=== PATIENT | male | born 1960 | race Caucasian/White ===

== ENCOUNTER 2017-11-04 07:54 | Outpatient (CLI) | payer BC ==
--- NOTE | 2017-11-04 09:53 | RAD ---
LUMBAR SPINE THREE VIEWS: 11/04/2017 HISTORY: Low back pain. FINDINGS: There are five eyf-[id number]-[id number] lumbar type vertebral bodies. The lateral view is slightly rotated, b ut there is no fracture or subluxation seen. Vertebral body heights are within normal limits. Mild vascular calcifications are seen in the lower abdominal aorta. IMPRESSION: No acute osseous abnormality involving the lumbar spine. If the patient continues to have low back p ain, MRI lumbar spine may be helpful for further evaluation. POS: [facility]
== END 2017-11-04 07:55 | disposition home or self-care (01) ==
LOC: RAD-FRANK 07:54
PROVIDERS: ATTEND Nurse Practitioner Family
DX: M54.5 Low back pain (principal)
CPT/HCPCS: 72100

== ENCOUNTER 2017-11-12 08:02 | Outpatient (CLI) | payer BC ==
--- NOTE | 2017-11-12 10:41 | MRI ---
MRI LUMBAR SPINE WITHOUT CONTRAST: Technique: Multiplanar, multisequence MRI imaging of the lumbar spine obtained. Indications: Low back pain, right leg and back pain. FINDINGS: Lumbar vertebrae maintain normal height and alignment. Disc spaces are preserved. Vertebral body sign al appears normal. L1-2: No disc bulge or protrusion. No significant abnormality. L2-3: Mild disc bulge flattens the anterior thecal sac. Mild facet hypertrophy. Very mild central can al stenosis. L3-4: Broad based disc bulge flattens the anterior thecal sac. Mild facet hypertrophy. Mild central c anal stenosis. L4-5: There is a slightly more prominent broad based disc bulge indenting and flattening the anterior thecal sac. Mild facet hypertrophy. Mild central canal stenosis. L5-S1: There is symmetric disc bulge to the right flattening the anterior thecal sac on the right and producing mild right foraminal encroachment. This slightly displaces traversing right SI nerve root and produces right neural foraminal narrowing without definite impingement or contact with the exitin g right L5 nerve root. IMPRESSION: 1. Disc bulges are seen as described above. Disc bulge is slightly more prominent at L4-5 and there i s symmetric disc bugle at the L5-S1 as described. POS: [facility]
== END 2017-11-12 08:03 | disposition home or self-care (01) ==
LOC: MRI 08:02
PROVIDERS: ATTEND Nurse Practitioner Family
DX: M54.5 Low back pain (principal); M51.86 Other intervertebral disc disorders, lumbar region
CPT/HCPCS: 72148

== ENCOUNTER 2018-07-20 13:18 | Outpatient (CLI) | payer BC ==
--- NOTE | 2018-07-20 14:19 | RAD ---
RIGHT KNEE RADIOGRAPHS FOUR VIEWS: 07/20/2018 PROVIDED CLINICAL HISTORY: Right knee pain. FINDINGS: There is prominent tricompartmental osteophyte formation with conspicuous medial femorotibial and pat ellofemoral joint space loss. Postoperative changes involving the lateral femoral epicondyle are not ed. Conspicuous vascular calcification is seen in the region of the popliteal artery. There is no e vidence for fracture or other acute osseous abnormality. IMPRESSION: 1. Advanced degenerative arthrosis of the right knee. 2. Conspicuous atherosclerosis. POS: [facility]
== END 2018-07-20 13:19 | disposition home or self-care (01) ==
LOC: RAD-FRANK 13:18
PROVIDERS: ATTEND Nurse Practitioner Family
DX: M25.561 Pain in right knee (principal); M17.11 Unilateral primary osteoarthritis, right knee; I70.213 Atherosclerosis of native arteries of extremities with intermittent claudication, bilateral legs

== ENCOUNTER 2019-03-24 08:18 | Outpatient (CLI) | payer BC ==
[2019-03-24 09:18] LABS: Estimated GFR-MDRD - POC Greater than 90
[2019-03-24] MEDS ORDERED: Iopamidol 370 76% 100 ML VIAL ONE (09:46)
--- NOTE | 2019-03-24 10:47 | CT ---
CT ANGIO OF ABDOMEN AND PELVIS AND LOWER EXTREMITIES PERFORMED WITH INTRAVENOUS CONTRAST ENHANCEMENT WITH 3D RECONSTRUCTIONS: HISTORY: Bilateral leg pain and numbness. The patient states the left leg is worse. FINDINGS: The lung bases show some COPD-type change. The liver, spleen, pancreas, and gallbladder regions appear unremarkable given the limitations of an angiographic exam. Right and left adrenal glands and right and left kidneys are normal in size. There is no significant paraaortic or mesenteric adenopathy. No pelvic lymphadenopathy or mass. Prostate is mildly promine nt. Angiographic portion of this study shows a normal-caliber aorta. The celiac and superior mesenteric arteries are normal in appearance. An MAIRA is present. Single renal arteries are seen without stenos is. The right lower extremity runoff shows normal caliber common internal and external iliacs. The commo n femoral and profunda femoral arteries are patent. The right superficial femoral artery is occluded at the level of the adductor canal with collaterals present. There is dense atherosclerotic change within the popliteal artery. There is reconstitution of flow via collaterals with small but patent t rifurcation vessels extending to the foot. On the left side, the left common internal and external iliac arteries are normal in appearance. The superficial and profunda femoral arteries are patent. The popliteal arteries are normal in appearan ce and there is 3-vessel runoff noted. IMPRESSION: 1. 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 Dense athe rosclerotic plaque within the popliteal artery and reconstitution of flow at the level of the trifurc ation with 3-vessel runoff to the right foot. 2. Essentially normal-appearing left lower extremity runoff. POS: [facility]
== END 2019-03-24 08:19 | disposition home or self-care (01) ==
LOC: CT 08:18
PROVIDERS: ATTEND Thoracic Surgery (Cardiothoracic Vascular Surgery)
DX: I70.213 Atherosclerosis of native arteries of extremities with intermittent claudication, bilateral legs (principal)
CPT/HCPCS: 75635; 82565; Q9967

== ENCOUNTER 2019-04-08 08:39 | Outpatient (CLI) | payer BC ==
[2019-04-08 13:52] LABS: #Basophils 0.1 thou/uL (0.0-0.2); #Eosinphils 0.3 thou/uL (0.0-0.7); #Lymphocytes 3.6 thou/uL (1.20-3.40); #Monocytes 1.2 thou/uL (0.11-0.59); #Neutrophils 5.8 thou/uL (1.40-6.50); %Basophils 0.9 % (0.0-1.0); %Eosinophils 3.1 % (0.0-10.0); %Lymphocytes 32.5 % (21.0-51.0); %Monocytes 11.2 % (0.0-10.0); %Neutrophils 52.4 % (42.0-75.0); Hemoglobin 15.1 g/dL (14.0-18.0); Mean Corpuscular HGB CONC 32.3 g/dL (32.0-36.0); Mean Corpuscular Volume 89.9 fL (78.0-98.0); Mean Platelet Volume 7.8 fL (7.4-10.4); Platelet Count 296 thou/uL (130-400); RBC Distribution Width 12.2 % (11.5-14.5)
[2019-04-08 13:56] LABS: INR-International Normal Ratio 0.9; Prothrombin Time 12.6 SEC (12.0-14.7)
[2019-04-08 14:14] LABS: Anion Gap 15 mmol/L (10-20); BUN (Urea Nitrogen) 9 mg/dL (8.4-25.7); Calc. Creatinine Clearance 0 mL/min (70-130); Calcium 9.1 mg/dL (7.8-10.44); Carbon Dioxide 26 mmol/L (22-29); Chloride 104 mmol/L (98-107); Estimated GFR-MDRD Greater than 90; Glucose 86 mg/dL (70-105); Potassium 4.7 mmol/L (3.5-5.1); Sodium 140 mmol/L (136-145)
== END 2019-04-08 08:40 | disposition home or self-care (01) ==
LOC: LABBT 08:39
PROVIDERS: ATTEND Orthopaedic Surgery
DX: Z01.812 Encounter for preprocedural laboratory examination (principal); M17.31 Unilateral post-traumatic osteoarthritis, right knee
CPT/HCPCS: 80048; 85025; 85610

== ENCOUNTER 2019-04-08 16:30 | Inpatient (IN) | payer BC ==
[2019-04-30] MEDS ORDERED: Fentanyl 100 MCG/2 ML VIAL ONE ×3 (11:13→15:02)
[2019-04-30] MEDS ORDERED: Midazolam HCl 2 mg/2 ml Vial ONE (11:13)
[2019-04-30 11:34] LABS: Prothrombin Time 13.1 SEC (12.0-14.7)
[2019-04-30] MEDS ORDERED: Vancomycin HCl 500 MG VIAL ONE (11:37)
[2019-04-30] MEDS ORDERED: Clindamycin/D5W 600 mg/50 ml Premix Bag ONE (11:37)
[2019-04-30] MEDS ORDERED: Tranexamic Acid 1,000 MG/10 ML VIAL ONE ×2 (11:37→15:56)
[2019-04-30 11:39] LABS: #Basophils 0.1 thou/uL (0.0-0.2); #Eosinphils 0.1 thou/uL (0.0-0.7); #Lymphocytes 2.7 thou/uL (1.20-3.40); #Neutrophils 4.3 thou/uL (1.40-6.50); %Basophils 0.8 % (0.0-1.0); %Eosinophils 1.5 % (0.0-10.0); %Lymphocytes 33.3 % (21.0-51.0); %Neutrophils 52.4 % (42.0-75.0); Hemoglobin 14.5 g/dL (14.0-18.0); Mean Corpuscular HGB CONC 31.1 g/dL (32.0-36.0); Mean Corpuscular Hemoglobin 27.5 pg (27.0-31.0); Mean Corpuscular Volume 88.5 fL (78.0-98.0); Mean Platelet Volume 8.2 fL (7.4-10.4); Platelet Count 301 thou/uL (130-400); RBC Distribution Width 12.3 % (11.5-14.5); Red Blood Cell (RBC) Count 5.26 mill/uL (4.70-6.10); White Blood Cell (WBC) Count 8.1 thou/uL (4.8-10.8)
[2019-04-30] MEDS ORDERED: Sodium Chloride 0.9% 0 ML ONE (11:42)
[2019-04-30 11:48] LABS: Anion Gap 10 mmol/L (10-20); BUN (Urea Nitrogen) 14 mg/dL (8.4-25.7); Calc. Creatinine Clearance 103 mL/min (70-130); Calcium 9.1 mg/dL (7.8-10.44); Carbon Dioxide 27 mmol/L (22-29); Chloride 105 mmol/L (98-107); Estimated GFR-MDRD Greater than 90; Glucose 89 mg/dL (70-105); Potassium 4.1 mmol/L (3.5-5.1); Sodium 138 mmol/L (136-145)
[2019-04-30] MEDS ORDERED: Ropivacaine HCl/PF 250 ML in Premix Bag 1 BAG NERVE BLCK SCH (11:50)
[2019-04-30] MEDS ORDERED: HYDROcodone/Acetaminophen 10/325 mg Tablet PO PRN (11:50)
[2019-04-30] MEDS ORDERED: traMADol HCl 50 MG TAB PO PRN ×2 (11:50)
[2019-04-30] MEDS ORDERED: Ondansetron PF 4 MG/2 ML Vial IVP PRN (11:50)
[2019-04-30] MEDS ORDERED: Promethazine HCl 25 MG/ML VIAL IM PRN ×2 (11:50→14:47)
[2019-04-30] MEDS ORDERED: Zolpidem Tartrate 5 MG TAB PO PRN (11:50)
[2019-04-30] MEDS ORDERED: Fentanyl 100 MCG/2 ML VIAL IV PRN (11:51)
[2019-04-30] MEDS ORDERED: Lidocaine 1% PF 5 ML VIAL ONE (12:25)
[2019-04-30] MEDS ORDERED: Ropivacaine 0.2% HCl/PF (40 MG/20 ML VIAL) ONE (12:25)
[2019-04-30] MEDS ORDERED: Ropivacaine 0.5% HCl/PF (150 MG/30 ML VIAL) ONE (12:25)
[2019-04-30] MEDS ORDERED: Ondansetron PF 4 MG/2 ML Vial ONE ×2 (12:25→14:19)
[2019-04-30] MEDS ORDERED: PROPOFOL 200 MG/20 ML VIAL ONE (12:25)
[2019-04-30] MEDS ORDERED: Phenylephrine HCL 10 MG/ML VIAL ONE (12:45)
[2019-04-30] MEDS ORDERED: PHENYLEPHRINE-NS 100 MCG/ML 10 ML SYRINGE ONE (12:46)
[2019-04-30] MEDS ORDERED: Ondansetron HCl/PF 4 MG/2 ML Vial IVP PRN (14:47)
[2019-04-30] MEDS ORDERED: Promethazine HCl 25 MG/ML VIAL SLOW IVP PRN (14:47)
[2019-04-30] MEDS ORDERED: HYDROmorphone 0.5 MG/0.5 ML SYRINGE ONE (15:28)
[2019-04-30] MEDS ORDERED: Fentanyl 100 MCG/2 ML VIAL SLOW IVP PRN (16:29)
[2019-04-30] MEDS ORDERED: diphenhydrAMINE 25 MG CAP PO PRN (16:29)
[2019-04-30] MEDS ORDERED: Acetaminophen 325 MG TAB PO PRN (16:29)
[2019-04-30] MEDS ORDERED: Promethazine HCl 25 MG/ML VIAL ONE (16:34)
--- NOTE | 2019-04-30 16:42 | RAD ---
Exam:2 views right knee HISTORY: Status post right knee arthroplasty COMPARISON: None FINDINGS: Right knee arthroplasty is identified. Near anatomic alignment. Nonspecific calcification a long the popliteal fossa, may be vascular in origin. Expected postoperative changes in the soft tissues. IMPRESSION: As above
[2019-04-30] MEDS: Sodium Chloride 0.9% 1,000 ML IV SCH (18:44)
[2019-04-30] MEDS: Ketorolac Tromethamine 30 MG/ML VIAL IVP SCH ×2 (18:44→18:48)
[2019-04-30] MEDS: Aspirin 81 mg Enteric Coated Tablet PO SCH (20:28)
[2019-04-30] MEDS: CEFAZOLIN 2 GM in Premix Bag 1 BAG IVPB SCH (20:28)
[2019-04-30] MEDS ORDERED: Vancomycin HCl 1 GM in Premix Bag 1 BAG IVPB SCH (23:59)
[2019-05-01] MEDS: HYDROcodone/Acetaminophen 10/325 mg Tablet PO PRN ×5 (04:12→22:43)
[2019-05-01] MEDS: CEFAZOLIN 2 GM in Premix Bag 1 BAG IVPB SCH (04:13)
[2019-05-01] MEDS: Sodium Chloride 0.9% 1,000 ML IV SCH ×2 (04:48→13:37)
[2019-05-01] MEDS: Ketorolac Tromethamine 30 MG/ML VIAL IVP SCH ×5 (05:58→23:04)
[2019-05-01 06:47] LABS: Hemoglobin 12.2 g/dL (14.0-18.0); Mean Corpuscular HGB CONC 33.2 g/dL (32.0-36.0); Mean Corpuscular Hemoglobin 29.8 pg (27.0-31.0); Mean Corpuscular Volume 89.8 fL (78.0-98.0); Mean Platelet Volume 8.1 fL (7.4-10.4); Platelet Count 245 thou/uL (130-400); RBC Distribution Width 12.2 % (11.5-14.5); Red Blood Cell (RBC) Count 4.09 mill/uL (4.70-6.10); White Blood Cell (WBC) Count 12.6 thou/uL (4.8-10.8)
[2019-05-01] MEDS: Ferrous Gluconate 324 MG TAB PO SCH ×2 (08:25→21:14)
[2019-05-01] MEDS: Multivitamin W/ Minerals 1 TAB PO SCH (08:25)
[2019-05-01] MEDS: Aspirin 81 mg Enteric Coated Tablet PO SCH ×2 (08:25→21:14)
[2019-05-01] MEDS: Senokot S 8.6-50 MG TAB PO SCH ×2 (08:26→21:14)
[2019-05-01 10:13] VITALS: BMI 23.0
[2019-05-02] MEDS: Sodium Chloride 0.9% 1,000 ML IV SCH ×2 (02:58→07:33)
[2019-05-02] MEDS: HYDROcodone/Acetaminophen 10/325 mg Tablet PO PRN ×2 (06:05→10:06)
[2019-05-02] MEDS: Ketorolac Tromethamine 30 MG/ML VIAL IVP SCH (06:05)
[2019-05-02 06:40] LABS: Hemoglobin 12.1 g/dL (14.0-18.0); Mean Corpuscular Hemoglobin 29.7 pg (27.0-31.0); Mean Corpuscular Volume 90.1 fL (78.0-98.0); Mean Platelet Volume 7.9 fL (7.4-10.4); Platelet Count 234 thou/uL (130-400); RBC Distribution Width 12.1 % (11.5-14.5); Red Blood Cell (RBC) Count 4.06 mill/uL (4.70-6.10); White Blood Cell (WBC) Count 13.1 thou/uL (4.8-10.8)
[2019-05-02] MEDS: Aspirin 81 mg Enteric Coated Tablet PO SCH (08:18)
[2019-05-02] MEDS: Ferrous Gluconate 324 MG TAB PO SCH (08:18)
[2019-05-02] MEDS: Senokot S 8.6-50 MG TAB PO SCH (08:18)
[2019-05-02] MEDS: Multivitamin W/ Minerals 1 TAB PO SCH (08:19)
[2019-05-02 11:38] VITALS: BP 121/81; TEMP 98
--- NOTE | 2019-05-03 06:36 | DIS ---
DATE OF ADMISSION: 04/30/2019 DATE OF DISCHARGE: 05/02/2019 HISTORY OF PRESENT ILLNESS: Mr. Houston is a 58-year-old male, status post right total knee arthroplasty with hardware removal. The patient is ambulating 200 feet with therapy. Pain is controlled. The patient is otherwise without complaints the patient doing functionally well. PLAN: The patient will be discharged to home with followup in about 3 weeks. He will weightbear as tolerated. He has therapy set up instructions via strike through, increasing pain, drainage and concerns to call or return to the clinic. The patient will work on range of motion. Take aspirin b.i.d., was sent home with 30 tablets hydrocodone. Follow up me as scheduled. Job ID: [id number]
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
== END 2019-05-02 12:15 | disposition home or self-care (01) | DRG 470 ==
LOC: SJJU 04-30 09:42 → SURG B 04-30 17:46
PROVIDERS: ADMIT Orthopaedic Surgery; ATTEND Orthopaedic Surgery
PROC: 0SRC0J9 Replacement of Right Knee Joint with Synthetic Substitute, Cemented, Open Approach (ICD-10-PCS; principal; 2019-04-30)
PROC: 0SPC04Z Removal of Internal Fixation Device from Right Knee Joint, Open Approach (ICD-10-PCS; 2019-04-30)
DX: M17.2 Bilateral post-traumatic osteoarthritis of knee (principal); Z88.6 Allergy status to analgesic agent; Z88.5 Allergy status to narcotic agent; Z88.0 Allergy status to penicillin; Z87.891 Personal history of nicotine dependence
CPT/HCPCS: 36415; 80048; 85025; 85027; 85610; C1713; C1776; J0131; J0690; J1170; J1885; J2001; J2250; J2370; J2405; J2550; J2704; J2795; J3010; J3370; J3490

== ENCOUNTER 2025-03-29 08:22 | Observation (INO) | payer OTHER ==
[2025-03-22 10:09] VITALS: BMI 19.5
[2025-03-29] MEDS ORDERED: Bupivacaine 0.25% HCL 30 ML VIAL ONE (08:57)
[2025-03-29] MEDS ORDERED: Vancomycin 1 GM/200 ML (FROZEN) BAG ONE (09:02)
[2025-03-29] MEDS ORDERED: CEFAZOLIN 2 GM VIAL ONE (09:02)
[2025-03-29] MEDS ORDERED: Tranexamic Acid 1,000 MG/10 ML VIAL ONE (09:02)
[2025-03-29] MEDS ORDERED: Ropivacaine 0.5% HCl/PF (150 MG/30 ML VIAL) ONE (09:05)
[2025-03-29] MEDS ORDERED: Lidocaine 1% PF 5 ML VIAL ONE (09:13)
[2025-03-29] MEDS ORDERED: Ondansetron PF 4 MG/2 ML Vial ONE (09:13)
[2025-03-29] MEDS ORDERED: fentaNYL PF 100 MCG/2 ML SYRINGE ONE ×5 (09:13→14:18)
[2025-03-29] MEDS ORDERED: Ondansetron PF 4 MG/2 ML Vial IVP PRN ×2 (09:45→11:51)
[2025-03-29] MEDS ORDERED: Ropivacaine 0.2% 550 ML 550 ML NERVE BLCK SCH (09:45)
[2025-03-29] MEDS ORDERED: HYDROcodone/Acetaminophen 10/325 mg Tablet PO PRN (09:45)
[2025-03-29] MEDS ORDERED: Albuterol HFA (OR) 200 PUFF INH ONE (10:10)
[2025-03-29] MEDS ORDERED: PHENYLEPHRINE-NS 100 MCG/ML 10 ML SYRINGE ONE (10:20)
[2025-03-29] MEDS ORDERED: diphenhydrAMINE 25 MG CAP PO PRN (11:51)
[2025-03-29] MEDS ORDERED: Acetaminophen 325 MG TAB PO PRN (11:51)
[2025-03-29] MEDS ORDERED: Ketorolac Tromethamine 30 MG (1 mL) VIAL ONE (13:26)
[2025-03-29] MEDS: Ketorolac Tromethamine 30 MG (1 mL) VIAL IVP SCH (13:28)
[2025-03-29] MEDS: HYDROcodone/Acetaminophen 10/325 mg Tablet PO PRN (16:54)
[2025-03-29] MEDS: Senokot S 8.6-50 MG TAB PO SCH (20:36)
[2025-03-29] MEDS: Aspirin 81 mg Enteric Coated Tablet PO SCH (20:36)
[2025-03-29] MEDS: Ferrous Gluconate 324 MG TAB PO SCH (20:36)
[2025-03-30 05:22] LABS: Hematocrit 35.2 % (42.0-52.0); Hemoglobin 11.0 g/dL (14.0-18.0); Mean Corpuscular Hemoglobin 27.6 pg (27.0-31.0); Mean Corpuscular Volume 88.4 fL (78.0-98.0); Platelet Count 216 10x3/uL (130-400); Red Blood Cell (RBC) Count 3.98 mill/uL (4.70-6.10); White Blood Cell (WBC) Count 10.65 10x3/uL (4.8-10.8)
[2025-03-30] MEDS: Multivitamin W/ Minerals 1 TAB PO SCH (08:48)
[2025-03-30 12:05] VITALS: BP 141/65; TEMP 98
== END 2025-03-30 12:10 | disposition home or self-care (01) ==
LOC: SDC 08:22 → SURG A 16:13
PROVIDERS: ADMIT Orthopaedic Surgery; ATTEND Orthopaedic Surgery
PROC: 0SRD0JZ Replacement of Left Knee Joint with Synthetic Substitute, Open Approach (ICD-10-PCS; principal; 2025-03-29)
PROC: 3E0T3BZ Introduction of Anesthetic Agent into Peripheral Nerves and Plexi, Percutaneous Approach (ICD-10-PCS; 2025-03-29)
DX: M17.32 Unilateral post-traumatic osteoarthritis, left knee (principal); Z96.651 Presence of right artificial knee joint; Z88.0 Allergy status to penicillin; Z88.5 Allergy status to narcotic agent
CPT/HCPCS: 0055T; 27447; 64448; 36415; 85027; A4306; C1713; C1776; C1889; J0169; J0665; J1100; J1885; J2250; J2405; J2795; J3010; J3373